=== PATIENT | female | born 1995 | race Caucasian/White ===

== ENCOUNTER → 2016-07-27 | Outpatient (CLI) | payer BC ==
[~2016-07-27] MED LIST: ADIPEX-P37.5 M1 PO; CELEXA10 MG PO; GLUCOPHAGE500 MG/TAB PO; PRAVACHOL10 MG PO; PREDNISONE20 MG PO
== END ==
LOC: BHSO 15:02
DX: F31.81 Bipolar II disorder (principal)

== ENCOUNTER → 2016-09-28 | Outpatient (CLI) | payer BC | LOC: BHSO 10:01 | DX: F41.8 Other specified anxiety disorders (principal) ==

== ENCOUNTER → 2016-10-19 | Outpatient (CLI) | payer BC | LOC: BHSO 15:02 | DX: F31.81 Bipolar II disorder (principal) ==

== ENCOUNTER → 2016-10-22 | Outpatient (CLI) | payer BC | LOC: BHSO 15:03 | DX: F31.81 Bipolar II disorder (principal) ==

== ENCOUNTER → 2016-12-06 | Outpatient (CLI) | payer BC | LOC: BHSO 15:55 | DX: F31.81 Bipolar II disorder (principal) ==

== ENCOUNTER → 2016-12-16 | Outpatient (CLI) | payer BC | LOC: BHSO 15:45 | DX: F41.1 Generalized anxiety disorder (principal) ==

== ENCOUNTER → 2017-01-06 | Outpatient (CLI) | payer BC | LOC: BHSO 09:58 | DX: F31.81 Bipolar II disorder (principal) ==

== ENCOUNTER → 2017-02-08 | Outpatient (CLI) | payer BC | LOC: BHSO 15:25 | DX: F41.1 Generalized anxiety disorder (principal) ==

== ENCOUNTER → 2017-02-11 | Outpatient (CLI) | payer BC | LOC: BHSO 14:11 | DX: F31.81 Bipolar II disorder (principal) ==

== ENCOUNTER → 2017-04-06 | Outpatient (CLI) | payer BC | LOC: BHSO 15:00 | DX: F31.81 Bipolar II disorder (principal) ==

== ENCOUNTER → 2017-05-03 | Outpatient (CLI) | payer BC | LOC: BHSO 15:27 | DX: F41.1 Generalized anxiety disorder (principal) ==

== ENCOUNTER → 2017-05-17 | Outpatient (CLI) | payer BC | LOC: BHSO 15:56 | DX: F31.81 Bipolar II disorder (principal) ==

== ENCOUNTER → 2017-06-21 | Outpatient (CLI) | payer BC | LOC: BHSO 16:04 | DX: F31.81 Bipolar II disorder (principal) ==

== ENCOUNTER → 2017-07-12 | Outpatient (CLI) | payer BC | LOC: BHSO 16:05 | DX: F31.81 Bipolar II disorder (principal) ==

== ENCOUNTER → 2017-09-02 | Outpatient (CLI) | payer BC | LOC: BHSO 15:05 | DX: F41.1 Generalized anxiety disorder (principal) | CPT/HCPCS: G0463 ==

== ENCOUNTER → 2017-09-05 | Outpatient (CLI) | payer BC | LOC: BHSO 15:59 | DX: F31.81 Bipolar II disorder (principal) ==

== ENCOUNTER → 2017-12-09 | Outpatient (CLI) | payer BC | LOC: BHSO 16:05 | DX: F33.42 Major depressive disorder, recurrent, in full remission (principal) | CPT/HCPCS: G0463 ==

== ENCOUNTER → 2017-12-28 | Outpatient (CLI) | payer BC | LOC: BHSO 15:00 | DX: F31.81 Bipolar II disorder (principal) ==

== ENCOUNTER → 2018-03-03 | Outpatient (CLI) | payer BC | LOC: BHSO 16:01 | DX: F31.81 Bipolar II disorder (principal) ==

== ENCOUNTER → 2018-06-01 | Outpatient (CLI) | payer BC | LOC: BHSO 15:55 | DX: F31.81 Bipolar II disorder (principal) ==

== ENCOUNTER → 2018-06-02 | Outpatient (CLI) | payer BC | LOC: BHSO 08:05 | DX: F41.1 Generalized anxiety disorder (principal) | CPT/HCPCS: G0463 ==

== ENCOUNTER → 2018-06-16 | Outpatient (CLI) | payer BC | LOC: BHSO 14:59 | DX: F31.81 Bipolar II disorder (principal) ==

== ENCOUNTER → 2018-07-06 | Outpatient (CLI) | payer BC | LOC: BHSO 14:55 | DX: F31.81 Bipolar II disorder (principal) ==

== ENCOUNTER → 2018-07-20 | Outpatient (CLI) | payer BC | LOC: BHSO 14:57 | DX: F31.81 Bipolar II disorder (principal) ==

== ENCOUNTER → 2018-09-01 | Outpatient (CLI) | payer BC | LOC: BHSO 16:02 | DX: F31.81 Bipolar II disorder (principal) ==

== ENCOUNTER → 2018-09-28 | Outpatient (CLI) | payer BC | LOC: BHSO 15:05 | DX: F31.81 Bipolar II disorder (principal) ==

== ENCOUNTER → 2018-11-06 | Outpatient (CLI) | payer BC | LOC: BHSO 13:04 | DX: F41.1 Generalized anxiety disorder (principal) | CPT/HCPCS: G0463 ==

== ENCOUNTER → 2018-11-13 | Outpatient (CLI) | payer BC | LOC: BHSO 12:58 | DX: F31.81 Bipolar II disorder (principal) ==

== ENCOUNTER → 2018-12-18 | Outpatient (CLI) | payer BC | LOC: BHSO 16:11 | DX: F31.81 Bipolar II disorder (principal) ==

== ENCOUNTER → 2019-01-26 | Outpatient (CLI) | payer BC | LOC: BHSO 16:05 | DX: F31.81 Bipolar II disorder (principal) ==

== ENCOUNTER → 2019-02-23 | Outpatient (CLI) | payer BC | LOC: BHSO 16:03 | DX: F31.81 Bipolar II disorder (principal) ==

== ENCOUNTER → 2019-03-14 | Outpatient (CLI) | payer BC | LOC: BHSO 15:49 | DX: F31.81 Bipolar II disorder (principal) ==

== ENCOUNTER → 2019-05-02 | Outpatient (CLI) | payer BC | LOC: BHSO 16:04 | DX: F31.81 Bipolar II disorder (principal) ==

== ENCOUNTER → 2019-06-04 | Outpatient (CLI) | payer BC | LOC: BHSO 16:08 | DX: F31.81 Bipolar II disorder (principal) ==

== ENCOUNTER → 2019-07-06 | Outpatient (CLI) | payer BC | LOC: BHSO 15:47 | DX: F31.81 Bipolar II disorder (principal) ==

== ENCOUNTER → 2019-07-24 | Outpatient (CLI) | payer BC | LOC: BHSO 09:07 | DX: F31.81 Bipolar II disorder (principal) ==

== ENCOUNTER → 2019-11-07 | Outpatient (CLI) | payer BC | LOC: BHSO 16:02 | DX: F31.81 Bipolar II disorder (principal) ==

== ENCOUNTER → 2019-11-12 | Outpatient (CLI) | payer BC | LOC: BHSO 10:10 | DX: F41.1 Generalized anxiety disorder (principal) | CPT/HCPCS: G0463 ==

== ENCOUNTER → 2019-12-13 | Outpatient (CLI) | payer BC | LOC: BHSO 16:07 | DX: F31.81 Bipolar II disorder (principal) ==

== ENCOUNTER → 2020-01-01 | Outpatient (CLI) | payer BC | LOC: BHSO 16:08 | DX: F31.81 Bipolar II disorder (principal) ==

== ENCOUNTER → 2020-01-22 | Outpatient (CLI) | payer BC | LOC: BHSO 16:09 | DX: F31.81 Bipolar II disorder (principal) ==

== ENCOUNTER → 2020-03-10 | Outpatient (CLI) | payer BC | LOC: BHSO 16:07 | DX: F31.81 Bipolar II disorder (principal) ==